=== PATIENT | male | born 1960 | race Caucasian/White ===

== ENCOUNTER 2022-09-16 06:09 | Day surgery (SDC) | payer MEDICARE, OTHER ==
[~2022-09-16] VITALS: Ht 160 cm; Wt 84.4 kg
[2022-09-16 06:43] VITALS: BP 134/68; TEMP 98.1; O2SAT 100
[2022-09-16] MEDS ORDERED: LIDOCAINE 1% INJ 50 ML MDV IJ ONE (06:54)
[2022-09-16] MEDS ORDERED: IODIXANOL 320MG/ML 50 ML IV ONE (06:54)
--- NOTE | 2022-09-16 08:16 | NUR ---
Patient is discharge to home in stable condition. Patient denies any discomfort. Patient verbalized understanding of the discharge instructions.
== END 2022-09-16 08:19 | disposition home or self-care (01) ==
LOC: CATHLAB 06:09
PROVIDERS: ATTEND Surgery Vascular Surgery
DX: E11.22 Type 2 diabetes mellitus with diabetic chronic kidney disease (principal); I12.0 Hypertensive chronic kidney disease with stage 5 chronic kidney disease or end stage renal disease; N18.6 End stage renal disease; Z99.2 Dependence on renal dialysis; D64.9 Anemia, unspecified; Z98.890 Other specified postprocedural states; Z79.899 Other long term (current) drug therapy
CPT/HCPCS: 36901; 76937; 36215; J3490; J1644; C1769; C1894